=== PATIENT | female | born 1955 | race Caucasian/White ===

== ENCOUNTER 2022-05-12 14:18 | Inpatient (IN) | payer MEDICARE ==
[~2022-05-12] VITALS: Ht 162.6 cm; Wt 93.1 kg
[2022-05-12] MEDS ORDERED: VITAMIN D325 MCG PO (19:43)
[2022-05-12] MEDS ORDERED: DAILY VITE1 EAC1 PO (19:43)
[2022-05-12] MEDS ORDERED: GLUCOSAMINE CH1 EAC7 PO (19:44)
--- NOTE | 2022-05-12 20:58 | NUR ---
IN TO DO ASSESSMENT. pt FAMILY LEAVING. pt SITTING IN BED EATING SANDWICH. REPORTS 5/10 PAIN. SCHEDULED MEDICATION GIVEN (SEE MAR). LASSITER PATENT, CONCENTRATED YELLOW URINE. ASSESSMENT DONE. LEFT KNEE IN BRACE. PEDAL PULSES FELT BILAT. FEET COOL TO TOUCH BILAT. SOCKS PER pt REQUEST. DENIES NUMBNESS AND TINGLING. CALL LIGHT WITHIN REACH.
--- NOTE | 2022-05-12 21:11 | EKG ---
[facility] [address] [facility] [place] [address] Signed Normal sinus rhythm Nonspecific T wave abnormality Abnormal ECG No previous ECGs available Confirmed by Lesli Steve MD () on 05/12/2022 9:10:55 PM Electronically Signed By: LESLI STEVE MD 05/12/222110 PATIENT NAME: NUSRAT PETERSON Radha Electrocardiogram DATE OF : 51 PHYSICIAN: LESLI STEVE MD REPORT #: [id number] REPORT IS CONFIDENTIAL AND NOT TO BE RELEASED WITHOUT AUTHORIZATION
--- NOTE | 2022-05-12 23:00 | NUR ---
ROUNDED ON pt. RESTING IN BED AWAKE. REPORTED THAT PAIN IS "HOLDING" RATED 8/10. OFFERED PAIN MEDICATION, DECLINED AT THIS TIME. WILL ROUND AGAIN. CALL LIGHT WITHIN REACH.
--- NOTE | 2022-05-12 23:23 | NUR ---
ROUNDED ON pt. REPORTS THAT PAIN IS STARTING TO LET UP. RATED PAIN 6/10. DECLINED MEDICATION AT THIS TIME. CALL LIGHT WITHIN REACH. pt RESTING IN BED.
--- NOTE | 2022-05-13 02:17 | NUR ---
PATIENT IS RESTING IN BED. PATIENT RATES PAIN AT A 6/10 IN HER LEFT LEG. PRN PAIN MEDICATION GIVEN PER ORDER. PATIENTS VITALS TAKEN AND RECORDED. LASSITER EMPTIED. INTAKE AND OUTPUT RECORDED. PATIENT DENIES ANY FURTHER NEEDS CALL LIGHT IN REACH.
--- NOTE | 2022-05-13 04:40 | NUR ---
pt CALLED FOR PAIN MEDICATION. pt REPORTS THAT HER BLADDER IS "FULL" FEELING. ATTEMPTED TO CLEAR LASSITER. VERY LITTLE URINE RETURNED UNABLE TO FLUSH OR EVACUATE URINE. PULLED LASSITER PER PROTOCOL. pt ATTEMPTED TO VOID, UNABLE TO. NEW LASSITER PLACED PER PROTOCOL. IMMEDIATE URINE RETURNED, YELLOW WITH SEDIMENT. pt REPOSITIONED WITH EXTREME CARE TO STABLIZE LEG WITH 3 STAFF. pt REPORTS THAT BLADDER FEELS BETTER. LEG PAIN WITH REPOSITIONING. pt REQUESTED TO WAIT A "BIT" FOR PAIN MEDICATION. NO CHANGES IN ASSESSMENT. CALL LIGHT WITHIN REACH.
--- NOTE | 2022-05-13 05:01 | NUR ---
ROUNDED ON pt. RESTING IN BED WITH EYES CLOSED, RESPIRATIONS REGULAR AND UNLABORED, RATE 16. CALL LIGHT WITHIN REACH.
--- NOTE | 2022-05-13 07:11 | NUR ---
PRN PAIN MEDICATION GIVEN (SEE MAR). pt REPORTS PAIN RELIEF QUICKLY FROM 10/10 TO TOLERABLE. DAUGHTER AT BEDSIDE.
--- NOTE | 2022-05-13 07:38 | NUR ---
Report from SHARA Maldonado. Patient alert and oriented in bed. Daughter at bedside. Aguilar patent at this time. Patient states nausea improved with crackers. Denies other needs at this time. Call light in reach, bed rails up X2.
--- NOTE | 2022-05-13 08:16 | NUR ---
SPOKE WITH DR. STEVE REGARDING PATIENT NAUSEA. VORB DR. STEVE/Janelle GRIER, RN, FOR ZOFRAN IV 4-8MG Q 6 HOUR PRN FOR NAUSEA AND VOMITING, ZOFRAN ODT 4 MG Q 6 HOURS FOR NAUSEA AND VOMITING WHEN IV NOT GIVEN. PATIENT EDUCATED ON MEDICATION, MEDICATION ADMINISTERED. DAUGHTER AT BEDSIDE. ASSESSMENT COMPLETED. DENIES OTHER NEEDS AT THIS TIME. CALL LIGHT IN REACH. BED RAILS UP X2.
--- NOTE | 2022-05-13 08:29 | NUR ---
PATIENT IN BED, DAUGHTER IN ROOM. AM CARE COMPLETED. CALL LIGHT WITHIN REACH.
--- NOTE | 2022-05-13 11:12 | NUR ---
Dr. Solitario notified of UO of 50 mL in 4 hours. Bladder scan negative for any urine. No new verbal orders at this time.
[2022-05-13] MEDS ORDERED: ASPIRIN325 MG PO (11:25)
--- NOTE | 2022-05-13 11:26 | NUR ---
MED REC COMPLETE
--- NOTE | 2022-05-13 13:43 | NUR ---
PATIENT IN BED AFTER MEAL. FAMILY IN ROOM VISITING, VITALS AND I/O'S COMPLETED. ICE WATER GIVEN, PT HAS SOME COMPLAINTS OF PAIN. WILL NOTIFY NURSE, CALL LIGHT WITHIN REACH.
--- NOTE | 2022-05-13 13:50 | NUR ---
PATIENT GIVEN 10MG OF PO OXYCODONE FOR 6/10 LEFT LEG PAIN.
--- NOTE | 2022-05-13 14:22 | NUR ---
PATIENT AWAKE, TALKING TO VISITORS. DENIES NEEDS AT THIS TIME. RATES PAIN 3 OR 4/10. STATES PAIN IS CURRENTLY TOLERABLE.
--- NOTE | 2022-05-13 18:05 | NUR ---
NOTIFIED DR. STEVE OF CONTINUED POOR URINE OUTPUT. DR. STVEE STATES HE WILL PUT IN ORDERS FOR IV FLUIDS.
--- NOTE | 2022-05-13 18:37 | NUR ---
Patient remains on bedrest today. PRN oral and IV medications administered for pain. Ice to site intermittently today. Brace to left leg remains in place. NPO at midnight tonight. Urine output inadequate today, IV fluids initiated this evening. Family members remain in room with patient.
--- NOTE | 2022-05-13 19:00 | NUR ---
PATIENT LYING IN BED, VITALS AND I/O'S COMPLETED. LASSITER DRAINED AND DOCUMENTED. ICE WATER GIVEN. PT HAS NO OTHER NEEDS AT THIS TIME. CALL LIGHT WITHIN REACH.
--- NOTE | 2022-05-13 19:34 | NUR ---
REPORT RECEIVED FROM DAY SHIFT RN. PT LYING IN BED WITH EYES CLOSED. RESPIRATIONS EVEN. BED ALARM FOR SAFETY. CALL LIGHT IN REACH.
--- NOTE | 2022-05-13 22:15 | NUR ---
EVENING ASSESSMENT COMPLETE. SCHEDULED MEDS ADMIN PER EMAR. PT REPORTS LEFT LEG PAIN TOLERABLE AT THIS TIME. DENIES PRN FOR PAIN WHEN OFFERED. VS AND I&O COMPLETE. TEMP ELEVATED. IS PROVIDED, PT DEMONSTRATED PROPER USE. EXTRA BLANKETS REMOVED. 3L/NC PLACED SpO2 DOWN TO MID 80'S WHEN PT WOULD DOZE OFF. CPOX PLACED. LEFT LEG IN BRACE. CMS INTACT. 2PA TO REPOSITION IN BED. IVF INFUSING WNL. LASSITER PATENT WITH CONCENTRATED URINE. LOW URINE OUTPUT NOTED. ENCOURAGED PO INTAKE. FAMILY AT BEDSIDE. PT DENIES QUESTIONS OR CONCERNS. CALL LIGHT IN REACH.
--- NOTE | 2022-05-14 00:20 | NUR ---
PT REPORTS LEFT LEG PAIN 5/10. PRN FOR PAIN ADMIN PER EMAR WITH BITES OF PUDDING. PT NPO AT THIS TIME. IVF INFUSING WNL. NO FURTHER NEEDS.
--- NOTE | 2022-05-14 03:02 | NUR ---
IV PUMP ALARMING, NEW BAG OF IV FLUIDS PROVIDED. NO OTHER NEEDS. CALL LIGHTIN REACH.
--- NOTE | 2022-05-14 04:11 | NUR ---
PT RESTING IN BED WITH EYES CLOSED. RESPIRATIONS EVEN. SpO2 95% PM 3L/NC. HR 90'S. DAUGHTER AT BEDSIDE RESTING IN RECLINER. CALL LIGHT IN REACH.
--- NOTE | 2022-05-14 06:51 | NUR ---
DR. PETERSON CALLED AND PROVIDED UPDATES. NEW TELEPHONE ORDERS RECEIVED VERIFIED WITH READBACK METHOD. PT REPORTS PAIN IS TOLERABLE AT THIS TIME. CMS INTACT. LEFT LEG IN BRACE. ICE PACK PROVIDED TO KNEE. PT NPO. IVF INFUSING WNL. URINE OUTPUT IMPROVED. DAUGHTER AT BEDSIDE. QUESTIONS ANSWERED. NO FURTHER NEEDS. CALL LIGHT IN REACH.
--- NOTE | 2022-05-14 07:30 | NUR ---
REPORT FROM SHARA KELLY. PATIENT LYING IN BED. STATES PAIN 6 OR 7/10 THIS AM AFTER BEING MOVED FOR XRAY. SEE EMAR. DAUGHTER IN ROOM, AT BEDSIDE. ASSESSMENT COMPLETED. DENIES OTHER NEEDS AT THIS TIME. CALL LIGHT IN REACH, BED RAILS UP X2.
--- NOTE | 2022-05-14 09:01 | NUR ---
PT LAYING IN BED. DAUGHTER PRESENT IN ROOM. VITALS AND IS AND OS COMPLETE. NO NEEDS. CALL LIGHT WITHIN REACH.
--- NOTE | 2022-05-14 11:49 | NUR ---
Surgical wipedown completed. New gown on patient. PRN analgesic provided p wipedown due to pain. Informed patient her dentures will need to be removed prior to surgery, cup provided at bedside. No jewelry in place. Denies other needs at this time.
--- NOTE | 2022-05-14 12:36 | NUR ---
SPOKE WITH PATIENT IN ROOM. PATIENT AWAKE, DROWSY FROM PAIN MEDICATIONS. PATIENT IS ORIENTED. DOES DRIFT TO SLEEP FROM TIME TO TIME BUT AWAKENS QUICK TO NAME. PATIENT STATES SHE IS WAITING FOR SURGERY. PATIENT STATES SHE NORMALLY DRIVES, DOES NOT USE DME. THEY LIVE OUT OF TOWN A [place] [facility]. SHE STATES SHE LIVES WITH OCTAVIA, HAS ADULT KIDS IN THE AREA AND HER DAUGHTER IS COMING TO STAY WITH HER WHILE SHE RECOVERS. PATIENT STATES THERE ARE TWO STEPS INTO HOME, ONE LEVEL INSIDE. SHE STATES SHE HAS SOME CRUTCHES AND SHE IS BORROWING A WALKER. SHE STATES HER FAMILY IS WORKING ON THAT. SHE STATES SHE HAS A TUB/SHOWER COMBO BUT NO SHOWER CHAIR. PATIENT STATES SHE CAN GO TO [place] FOR THERAPY IF NEEDED. SHE STATES SHE USES [facility] AND HAS PCP IN [place]. PATIENT FEELS SAFE TO GO HOME WITH HER FAMILY. I LEFT THE ROOM, PATIENTS OCTAVIA AND DAUGHTER HARESH PABLO WERE COMING IN. WE VISITED IN [place]. THEY PLAN ON HER DISCHARGING TO HOME. THEY STATED HARESH IS GOING TO STAY WITH THEM, SHE IS AN RESPIRATORY SUPPORT TECHNICIAN. SHE WILL TAKE FMLA. THEY HAVE ALREADY GOT A RAMP INSTALLED, BORROWED A FWW AND WHEELCHAIR. [facility] ABOUT [facility]OWER BENCH. THE TUB IS A GARDEN TUB WITH A STEP UP AND HAS A SHOWER. THEY ALSO HAVE A TOILET RISER SECURED AND ARE INSTALLING GRAB BARS IN BATHROOM. THEY WILL BE PROVIDING TRANSPORTATION TO ALL APPOINTMENTS AND HOME. THEY ARE EAGER TO WORK WITH DISCHARGE FOR ANYTHING WE THINK SHE NEEDS. WE DISCUSSED WE WILL KNOW MORE AFTER SURGERY AND THERAPIES HAVE WORKED WITH HER. CM WILL CONTINUE TO FOLLOW.
--- NOTE | 2022-05-14 13:06 | NUR ---
PT was in bed. Appeared to be in good spirits, but did fall asleep during conversation. Woke a short time later, and appeared to be unaware she had dozed off. Prayed for comfort and healing.
--- NOTE | 2022-05-14 13:22 | NUR ---
PATIENT IS ON STRAIGHT SURGERY TUBING AND FLUIDS, COMPRESSOR OPERATOR TO OR ANCEF AND TRANEXAMIC ACID ARE HANGING WITH IVF. LASSITER CATHETER EMPTIED FOR 150CC OF SEDIMENTED YELLOW URINE. FAMILY ARE IN ROOM WITH PATIENT.
--- NOTE | 2022-05-14 13:55 | NUR ---
Patient taken to surgery via bed.
--- NOTE | 2022-05-14 15:58 | NUR ---
Telemetry removed for MRI, taken to MRI with radiology staff in wheelchair. Heavy 2 person assist to wheelchair, pivot transfer.
--- NOTE | 2022-05-14 17:56 | NUR ---
05/14/22 1756 Jenise Pryor 1738- PT ARRIVES TO PACU REACTIVE TO VOICE. PT REPORTS NO PAIN OR NAUSEA. RESP EVEN AND UNLABORED. OXYGEN SAT HIGH 90'S TO 100% ON 6L VIA MASK. CRYOCUFF PLACED TO PT'S LEFT KNEE WITH DRESSING IN BETWEEN SKIN AND CRYOCUFF. 1742- OXYGEN TITRATED OFF.
--- NOTE | 2022-05-14 18:55 | NUR ---
PATIENT ARRIVES FROM PACU IN BED. ON 2L/MIN PER NC OXYGEN. DRESSING TO LEFT LEG IS C/D/I AND CRYOCUFF IN PLACE. ELEVATED TEMP NOTED. IS DONE 6 TIMES UP TO 1250. FAMILY REMAINS IN ROOM AT THIS TIME. PAIN 4/10 AT THIS TIME. GOOD PULSES, BRISK CAP REFILL. ROM INTACT.
--- NOTE | 2022-05-14 19:29 | NUR ---
REPORT RECEIVED FROM DAY SHIFT RN. PT LYING IN BED ALERT AND ORIENTED. REPORTS PAIN IS TOLERABLE AT THIS TIME. SCD'S/TEDS/HP/CRYO IN PLACE. BRACE TO LEFT LEG IN PLACE. SpO2 MID 90'S. 2L/NC IN PLACE. CLEAR LIQUIDS PROVIDED PER REQUEST. PT DENIES NAUSEA. NO FURTHER NEEDS AT THIS TIME. FAMILY AT BEDSIDE. CALL LIGHT IN REACH.
--- NOTE | 2022-05-14 20:06 | NUR ---
POST OP VS COMPLETE. SCHEDULED MEDS ADMIN. PRN FOR 6/10 LEFT LEG PAIN ADMIN PER EMAR. PT DOZING ON AND OFF. FAMILY OUT OF ROOM FOR DINNER. BED ALARM FOR SAFETY.
--- NOTE | 2022-05-14 21:14 | NUR ---
PT RESTING WITH EYES CLOSED. AWAKENS EASILY. POST OP DONE. PUDDING AND KALYAN CRACKERS PROVIDED. PT REPORTS PAIN IS TOLERABLE AT THIS TIME. FAMILY BACK IN ROOM. NO FURTHER NEEDS.
--- NOTE | 2022-05-14 22:00 | NUR ---
POST OP VS COMPLETE. PT REPORTS PAIN IN LEFT LEG TOLERABLE. SCHEDULED MEDS ADMIN PER EMAR. 2PA TO REPOSITION IN BED. LEFT LEG IN BRACE WITH TOWEL UNDER ACHILLES. SCD'S/TEDS/HP IN PLACE. HP ON RIGHT FOOT. FRESH ICE TO CRYO. SANDWICH BOX PROVIDED. PT VIOLETA REG DIET WELL. FAMILY AT BEDSIDE. NO FURTHER NEEDS.
--- NOTE | 2022-05-15 00:10 | NUR ---
PT RESTING IN BED WITH EYES CLOSED. RESPIRATIONS EVEN. CALL LIGHT IN REACH.
--- NOTE | 2022-05-15 02:16 | NUR ---
PT RESTING WITH EYES CLOSED. AWAKENS EASILY. VS AND I&O COMPLETE. SpO2 96% ON 2L/NC. OXYGEN TITRATED TO 1L/NC. CPOX IN PLACE. PT REPORTS LEFT LEG PAIN TOLERABLE AT 10/12. SCHEDULED PAIN MEDS ADMIN PER ORDER. CMS INTACT BILAT. LEFT LEG IN BRACE. SCD/ABBY/HP IN PLACE. FRESH ICE TO CRYO. DAUGHTER IN ROOM. PT/FAMILY DENIES NEEDS. CALL LIGHT IN REACH.
--- NOTE | 2022-05-15 04:50 | NUR ---
IV PUMP ALARMING. ISSUE RESOLVED. PT REPORTS SHE IS RESTING COMFORTABLY. DENIES NEEDS. SpO2 95% ON 1L/NC.
--- NOTE | 2022-05-15 06:27 | NUR ---
PT AWAKE IN BED. VS AND I&O COMPLETE. REPORTS LEFT LEG PAIN TOLERABLE AT THIS TIME. SCHEDULED MEDS ADMIN. IVF INFUSING WNL. 2PA TO REPOSITION PT IN BED. SCD/TEDS/HP IN PLACE. FRESH ICE TO CRYO. DRESSING TO LEFT LEG CDI. BRACE IN PLACE. CMS INTACT. PT DENIES FURTHER NEEDS. CALL LIGHT IN REACH.
--- NOTE | 2022-05-15 07:15 | NUR ---
REPORT RECEIVED FROM SHARA KELLY. PT LAYING IN BED WITH EYES OPEN. PT RESPONDS WHEN ADDRESSED. RR EVEN AND UNLABORED. PT REPORTING NO NEEDS AT THIS TIME. DAUGHTER AT BEDSIDE. CALL LIGHT IN REACH.
--- NOTE | 2022-05-15 08:54 | NUR ---
IN TO ADMINISTER MEDICATIONS. PT SITTING UP IN BED WIH DAUGHTER AT BEDSIDE. PT TAKES PO MEDICATIONS WITH NO ISSUES. ASSESSMENT COMPLETE. BRUISING NOTED TO RIGHT LATERAL THIGH. PT REPORTING NO PAIN THIS MORNING. BRACE ON LEFT LEG WITH ICE MACHINE. NO OTHER NEEDS OR QUESTIONS AT THIS TIME. CALL LIGHT IN REACH. PT SITTING UP IN BED.
--- NOTE | 2022-05-15 10:18 | NUR ---
IN TO ADMINISTER MEDICATION. PT SITTING UP IN BED WITH FAMILY AT BEDSIDE. PT TAKES PO MEDICATION WITH NO ISSUES. PT REPORTING PAIN 2/10, SCHEDULED TRAMADOL GIVEM. NO OTHER NEEDS OR QUESTIONS AT THIS TIME. CALL LIGHT IN REACH.
--- NOTE | 2022-05-15 13:12 | NUR ---
IN TO REASSESS PAIN. PT STATES PAIN IS A 4/10. PT REQUESTING MORE WATER, WATER PROVIDED. MEAL TRAY REMOVED. NO OTHER NEEDS AT THIS TIME. CALL LIGHT IN REACH. FAMILY IN THE ROOM.
--- NOTE | 2022-05-15 15:40 | NUR ---
Spoke with pt, spouse and two daughters, whom I have known for many years. Pt plans on dc to home with family. They live 130 miles away. Daughter would like pt to have HH. Pt was planning on borrowing a walker, but daughter and pt now stating they would like a walker. I spoke with Dr. Busby and she will order a walker and HH. I will call [facility] and check if they cover the [place] area. Daughter is a nurse there, but is unsure if they cont. to service this area since covandrzej.
--- NOTE | 2022-05-15 16:10 | NUR ---
Faxed [facility] chart and called. They will deliver a walker tomorrow. Attempted to call [facility] , they are closed. Left a message asking if they service the [place] area.
--- NOTE | 2022-05-15 16:47 | NUR ---
IN ROOM TO REASSESS PAIN. PT STATES PAIN IS AT A 6/10 AND REQUESTING PAIN MEDICATION. PRN MEDICATION ADMINISTERED, SEE MAR. NO OTHER NEEDS AT THIS TIME. CALL LIGHT IN REACH.
--- NOTE | 2022-05-15 17:11 | NUR ---
Pt [facility] as their nearest pharmacy is 80 miles away.
--- NOTE | 2022-05-15 18:42 | NUR ---
IN TO ADMINISTER MEDICATION, SEE MAR. PT SITTING UP IN BED REPORTING PAIN 01/12. LASSITER REMOVED. PT REQUESTING TO USE COMMODE. CHING RN IN ROOM TO ASSIST WITH TRANSFER FROM BED TO COMMODE. 2 PA WITH FWW TO COMMODE. SKIP ROCHA IN ROOM TO ASSIST WITH TRANSFER FROM COMMODE BACK TO BED WITH FWW. CRYO FILLED WITH ICE. EDUCATION BIOPROCESS ENGINEER LIGHT AND TO USE CALL LIGHT WHEN NEEDING TO GET UP. PT VERBALIZED UNDERSTANDING. CALL LIGHT IN REACH. NO OTHER NEEDS FROM THIS RN. SKIP ROCHA STILL IN ROOM. FAMILY IN ROOM.
--- NOTE | 2022-05-15 19:34 | NUR ---
REPORT RECEIVED FROM DAY SHIFT RN. PT LYING IN BED ALERT AND ORIENTED. DENIES NEEDS AT THIS TIME. WHITE BOARD UPDATED. CALL LIGHT IN REACH. BED ALARM FOR SAFETY.
--- NOTE | 2022-05-15 22:17 | NUR ---
EVENING ASSESSMENT COMPLETE. SCHEDULED MEDS ADMIN PER EMAR. PT REPORTS PAIN IN LEFT LEG TOLERABLE. DENIES NAUSEA. DRESSING ON LEFT LEG CDI WITH BRACE IN PLACE. FRESH ICE TO CRYO. SCD/TEDS/HP IN PLACE. CMS INTACT. 2PA TO REPOSITION IN BED. PT DENIES QUESTIONS OR CONCERNS. CALL LIGHT IN REACH. DAUGHTER TO SPEND THE NIGHT.
--- NOTE | 2022-05-16 00:06 | NUR ---
PT DUE TO VOID. UP TO BSC WITH FWW AND 2PA. TTWB LEFT FOOT. BACK WASHED AND LOTION APPLIED. LINENS CHANGED. PT UNABLE TO VOID AFTER SITTING FOR APPROX 15 MIN. BACK TO BED, VIOLETA WELL. ASSISTED PT TO LIFT LEG INTO BED. PT REPORTS PAIN TOLERABLE WITH ACTIVITY. BLADDER SCANNED FOR 27 ML. PO INTAKE ENCOURAGED. FRESH WATER PROVIDED.
--- NOTE | 2022-05-16 02:33 | NUR ---
SCHEDULED MEDS ADMIN PER EMAR. PT REPORTS PAIN WELL CONTROLLED. DENIES THE NEED TO VOID AT THIS TIME. ENCOURAGED PO INTAKE. NO NEEDS AT THIS TIME. CALL LIGHT IN REACH.
--- NOTE | 2022-05-16 05:05 | NUR ---
PT RESTING IN BED WITH EYES CLOSED. AWAKENS EASILY. 1PA TO BSC WITH FWW TTWB LEFT LEG. PT ABLE TO VOID APPROX 20 ML. STAFF ASSIST WITH TATIANA CARE. BACK TO BED, VIOLETA WELL. BLADDER SCANNED FOR 250 ML. LEMONADE AND ICE WATER PROVIDED. SCD/TEDS/HP IN PLACE. FRESH ICE TO CRYO. BRACE IN PLACE. CMS INTACT. DRESSING TO LEFT KNEE CDI. PT REPORTS PAIN IS TOLERABLE. NO FURTHER NEEDS AT THIS TIME. CALL LIGHT IN REACH.
--- NOTE | 2022-05-16 06:24 | NUR ---
SCHEDULED MEDS ADMIN PER EMAR. PT REPORTS PAIN WELL CONTROLLED. UP TO BSC WITH 1PA AND FWW TO VOID APPROX 50 ML. STAFF ASSIST WITH TATIANA CARE. BACK TO BED, VIOLETA WELL. SCD/TEDS/HP/CRYO IN PLACE. INGRID ISRAEL NOTIFIED OF LOW URINE OUTPUT. NEW TELEPHONE ORDERS RECEIVED VERIFIED WITH READBACK METHOD.
--- NOTE | 2022-05-16 07:10 | NUR ---
REPORT RECEIVED FROM SHARA KELLY. PT LAYING IN BED WITH EYES CLOSED. RR EVEN AND UNLABORED. NO NEEDS IDENTIFIED AT THIS TIME.
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
--- NOTE | 2022-05-16 08:45 | NUR ---
IN ROOM TO ADMINISTER MEDICATION. PT SITTING UP IN BED WITH MEAL TRAY. PT TAKES PO MEDICATION WITH NO ISSUES. SALINE BOLUS STARTED, SEE MAR. ASSESSMENT COMPLETE. MEAL TRAY REMOVED. PT REQUESTING TO HAVE HOB DOWN TO TRY AND SLEEP. HOB PUT DOWN. NO OTHER NEEDS AT THIS TIME. CALL LIGHT IN REACH.
--- NOTE | 2022-05-16 10:00 | NUR ---
Spoke with pt and she states she had a difficult night. Daughter and spouse in room. Awaiting Dr. Mendoza to see if pt will dc today.
--- NOTE | 2022-05-16 10:19 | NUR ---
IN ROOM TO REASSESS PAIN. PT LAYING IN BED WITH PHYSICAL THERAPY AND FAMILY IN THE ROOM. PT STATES PAIN IS A 2/10, MEDICATION GIVEN, SEE MAR. PT TAKES PO MEIDCATION WITH NO ISSUES. PT REQUESTING MORE WATER, WATER PROVIDED. NO OTHER NEEDS AT THIS TIME. CALL LIGHT IN REACH.
--- NOTE | 2022-05-16 11:25 | NUR ---
IN TO ANSWER CALL LIGHT. PT REQUESTING TOILETING. SKIP MORRISON IN ROOM TO ASSIST WITH TOILETING. PT ABLE TO STAND AND PIVOT FROM BED TO COMMODE WITH 2 PA AND FWW. PT REQUESTING SOME TIME ALONE. CALL LIGHT IN REACH. PT VERBALIZE UNDERSTANDING TO USE CALL LIGHT WHEN READY TO GET FROM COMMODE BACK TO BED.
--- NOTE | 2022-05-16 11:30 | NUR ---
IN ROOM TO ANSWER CALL LIGHT. PT FINISHED WITH TOILETING AND REQUESTING TO GET BACK TO BED. SKIP MORRISON IN ROOM TO ASSIST WITH TRANSFER FROM COMMODE TO BED. PT ABLE TO STAND AND PIVOT WITH 2 PA AND FWW FROM COMMODE TO BED. PT LAYING IN BED. NO OTHER NEEDS AT THIS TIME. CALL LIGHT IN REACH.
--- NOTE | 2022-05-16 12:41 | NUR ---
IN ROOM TO REASSESS PAIN. PT LAYING IN BED WITH FAMILY IN THE ROOM. PT REPORTING PAIN 11/12. PT DENIES WANTING ANYTHING FOR PAIN AT THIS TIME. CALL LIGHT IN REACH. NO OTHER NEEDS AT THIS TIME.
--- NOTE | 2022-05-16 13:00 | NUR ---
Attempted to see pt, she and person in the room are sleeping and do not awaken. Will see tomrrow.
--- NOTE | 2022-05-16 14:32 | NUR ---
Spoke with Dr. Mendoza and pt will dc to home tomorrow.
--- NOTE | 2022-05-16 14:46 | NUR ---
IN ROOM TO ADMINISTER MEDICATION. PT LAYING IN BED WITH FAMILY IN ROOM. PT TAKES PO MEDICATION WITH NO ISSUES. ASSESSMENT COMPLETE. RLL AND LLL LUNG SOUNDS HAVE SOME CRACKLES. O2 SATURATION 93% PT DENIES FEELING SOB, STATES "JUST FEEL SLEEPY." NO OTHER CHANGES FROM PREVIOUS ASSESSMENT. PT REQUESTING TO USE COMMODE. SHARA FLOWER IN ROOM TO ASSIST WITH TOILETING. PT ABLE TO STAND AND PIVOT WITH LITTLE ASSISTANCE TO COMMODE FROM BED. SKIP MORRISON IN ROOM TO ASSIST WITH TOILETING TO GET PT FROM COMMODE BACK TO BED. NO OTHER NEEDS AT THIS TIME. CALL LIGHT IN REACH.
--- NOTE | 2022-05-16 15:33 | NUR ---
IN ROOM TO REASSESS PAIN. PT REPORTS PAIN 4/10 "IT IS DOING OKAY." PT DENIES WANTING ANYTHING FOR PAIN AT THIS TIME. NO OTHER NEEDS AT THIS TIME. CALL LIGHT IN REACH. PT LAYING IN BED WITH FAMILY IN THE ROOM.
--- NOTE | 2022-05-16 16:30 | NUR ---
IN ROOM TO REASSESS PAIN. PT REPORTING PAIN /10 "IT IS OKAY." PT DENIES ANY NEEDS AT THIS TIME. CALL LIGHT IN REACH. FAMILY IN THE ROOM.
--- NOTE | 2022-05-16 17:23 | NUR ---
THIS RN AND SKIP MORRISON IN ROOM TO ANSWER CALL LIGHT. PT REQUESTING TO BE BOOSTED UP IN BED. PT REPORTING PAIN 2/. PT DENIES ANY NEEDS AT THIS TIME. CALL LIGHT IN REACH.
--- NOTE | 2022-05-16 18:05 | NUR ---
IN ROOM TO ADMINISTER MEDICATION. PT TAKES PO MEDICATION WITH NO ISSUES. PT REQUESTING TO USE COMMODE. SKIP GOODE IN ROOM TO ASSIST WITH TOILETING. PT ABLE TO STAND AND PIVOT WITH FWW AND STANDBY ASSIST FROM BED TO COMMODE AND BACK TO BED. SCD ON RIGHT LEG PLACED ALONG WITH HEEL PROTECTOR. CRYO ON LEFT LEG AND ROLLED TOWEL UNDER HEEL. WATER CUP FILLED. NO OTHER NEEDS AT THIS TIME. CALL LIGHT IN REACH. PT LAYING IN BED WITH TELEVISION ON.
--- NOTE | 2022-05-16 18:47 | NUR ---
PT WORKED WITH PHYSICAL THERAPY. 1-2 PERSON ASSIST WITH FWW. PAIN WELL CONTROLLED THIS SHIFT. PT A+O, ON RA, IV SL, VSS. PT TOLERATING REGULAR DIET. VOIDED QS THIS SHIFT.
--- NOTE | 2022-05-16 19:31 | NUR ---
REPORT RECEIVED FROM DAY SHIFT RN. PT LYING IN BED RESTING WITH EYES CLOSED. RESPIRATIONS EVEN. CALL LIGHT IN REACH.
--- NOTE | 2022-05-16 19:50 | NUR ---
SCHEDULED MEDS ADMIN. PT REPORTS LLE PAIN TOLERABLE 10/12. SBA WITH FWW TO BSC TO VOID 250 ML CONCENTRATED URINE. TTWB. STAFF ASSIST WITH TATIANA CARE. BACK TO BED, VIOLETA WELL. SCD/TEDS/HP IN PLACE. FRESH ICE IN CRYO. FAMILY IN ROOM. NO FURTHER NEEDS.
--- NOTE | 2022-05-16 22:08 | NUR ---
EVENING ASSESSMENT COMPLETE. SCHEDULED MEDS ADMIN PER EMAR. PT REPORTS PAIN WELL CONTROLLED. SBA WITH FWW TO BR TO VOID. STAFF ASSIST WITH TATIANA CARE. BACK TO BED, VIOLETA WELL. SCD/TEDS/HP/CRYO IN PLACE. BRACE TO LEFT LEG IN PLACE. DRESSING CDI. CMS INTACT. PT DENIES QUESTIONS OR CONCERNS. FAMILY IN ROOM. CALL LIGHT IN REACH.
--- NOTE | 2022-05-16 23:26 | NUR ---
PT RESTING IN BED WITH EYES CLOSED. RESPIRATIONS EVEN. CALL LIGHT IN REACH.
--- NOTE | 2022-05-17 00:35 | NUR ---
THIS RN RECEIVED REPORT FROM SHARA KELLY AND I AM ASSUMING CARE FOR PATIENT AT THIS TIME. PATIENT IS RESTING IN LOW FOWLERS POSITION, EYES CLOSED, RESPIRATIONS ARE REGULAR AND EVEN, CALL LIGHT IN REACH, AND PATIENT'S DAUGHER ASLEEP ON THE SOFA. PATIENT HAS NO CURRENT NEEDS AT THIS TIME.
--- NOTE | 2022-05-17 00:52 | NUR ---
THIS BRAND SALES MANAGER AND PRIMARY RN GUILLAUME HELPED PATIENT GET UP TO BEDSIDE COMMODE AND BACK TO BED. PATIENT TOLERATED WELL PIVOTING WITH WALKER. CRYO REFILLED. WHITE BOARD UPDATED. DAUGHTER IN THE ROOM.
--- NOTE | 2022-05-17 00:52 | NUR ---
PATIENT CALLED TO VOID. THIS RN AND SKIP VILLAGOMEZ 2PA WITH FWW AND TOE TOUCH WITH LEFT LEG IN BRACE TO THE BEDSIDE COMMODE AND BACK TO BED. PATIENT DENIES THE NEED FOR PAIN MEDS AT THIS TIME. CALL LIGHT IN REACH AND SKIP VILLAGOMEZ REFILLED ICE FOR THE CRYO CUFF WHICH IS NOW IN PLACE. PATIENT HAD NO OTHER CARE NEEDS AT THIS TIME.
--- NOTE | 2022-05-17 01:56 | NUR ---
THIS RN IN TO GIVE 0200 SCHEDULED PAIN MEDS. PATIENT AWOKE WHEN I CAME IN THE ROOM AND RATES HER PAIN 4/10 PRIOR TO MEDICATION ADMINISTRATION. MEDS GIVEN AND AM ASSSESSMENT COMPLETE. ICE WATER REFILLED. PATIENT DENIES ANY OTHER CARE NEEDS AT THIS TIME. CALL LIGHT IN REACH.
--- NOTE | 2022-05-17 04:09 | NUR ---
THIS RN DOING ROUNDS. PATIENT RESTING QUIETLY IN LOW FOWLERS POSITION, WITH LEFT LEG BRACE ON AND CRYO CUFF IN PLACE, EYES CLOSED, RESPIRATIONS ARE REGULAR AND EVEN, AND CALL LIGHT IS IN REACH. SERGIO'S DAUGHTER IS ASLEEP ON THE SOFA. PATIENT HAS NO NOTED NURSE CARE NEEDS AT THIS TIME.
--- NOTE | 2022-05-17 05:26 | NUR ---
THIS RN AND SKIP VILLAGOMEZ IN TO ASSIST PATIENT UP TO THE BEDSIDE COMMODE AND BACK TO BED AFTER VOIDING. CRYO ICE REFILLED AND CUFF BACK IN PLACE, SCD ON RIGHT LEG, AND LEFT LEG BRACE REMAINS IN PLACE. PAIN IS AT 3/10 IN THE LEFT LEG AT THIS TIME. AM SCHEDULED PAIN MEDS GIVEN. CALL LIGHT IN REACH AND ICE WATER REFRESHED. PATIENT HAS NO OTHER CARE NEEDS AT THIS TIME.
--- NOTE | 2022-05-17 07:40 | NUR ---
Report received, care resumed. Pt resting in bed, awake.
[2022-05-17] MEDS ORDERED: OXYCODONE HCL5 MG PO (08:09)
[2022-05-17] MEDS ORDERED: SENNA LAX8.6 MG PO (08:09)
[2022-05-17] MEDS ORDERED: TRAMADOL HCL50 MG PO (08:09)
[2022-05-17] MEDS ORDERED: GABAPENTIN300 MG PO (08:09)
[2022-05-17] MEDS ORDERED: XARELTO10 MG PO (08:09)
[2022-05-17] MEDS ORDERED: ONDANSETRON HCL4 MG PO (08:09)
[2022-05-17] MEDS ORDERED: BACTRIM DS TAB1 EACH PO (08:12)
--- NOTE | 2022-05-17 09:50 | NUR ---
ASSESSMENT DONE, MORNING MEDS GIVEN. DISCUSSED PLAN TO GO HOME TODAY, PLAN FOR PAIN MANAGEMENT. PT DAUGHTER AND IN ROOM ASSISSTING WITH CARE. PAIN 3/10 IN LEFT LEG AT THIS TIME, WELL CONTROLLED PER PT. DRESSING ON INCISION ON LEFT THIGH DRY AND INTACT. PT VERBALIZES READINESS TO RETURN HOME, CONCERN FOR ABILITY TO GET INTO CAR. WILL PLAN TO ADMINISTER PRN PAIN MED PRIOR TO LEAVING PT HAS A LONG DRIVE HOME [place] [address], REASSURANCE GIVEN THAT SHE WILL HAVE HELP WHEN LEAVING HOSPITAL. REPS EVEN AND UNLABORED, PT HAS NO FURTHER NEEDS AT THIS TIME.
--- NOTE | 2022-05-17 10:24 | NUR ---
ALL DISCHARGE INSTRUCTIONS REVIEWED AND ALL QUESTIONS ANSWERED. IV REMOVED WITH CATH. INTACT.
--- NOTE | 2022-05-17 10:31 | NUR ---
IN ROOM TO GIVE SCHEDULED PAIN MEDICATION. PT SITTING UP ON BEDSIDE COMMODE GETTIGN DRESSED FOR DISCHARGE. PAIN 5/10 IN LEFT LEG SINCE GETTING UP AND MOVING. DAUGHTER HELPING PT WITH ADL'S. BEDBATH DONE, SHOWER CAP PROVIDED. CARYL LIGHT IN REACH, RESP EVEN AND UNLABORED.
--- NOTE | 2022-05-17 12:15 | NUR ---
PT DISCHARGED TO HOME WITH DAUGHTER AND , ALL PERSONAL BELONGINGS. PRN PAIN MEDICATION GIVEN PRIOR TO DISCHARGE. VITALS STABLE, PAIN UNDER CONTROL.
--- NOTE | 2022-05-17 14:17 | NUR ---
Faxed face sheet, H&P, progress notes, DC summary, PT notes, F2f to [facility] .
== END 2022-05-17 12:15 | disposition home or self-care (01) | DRG 481 ==
LOC: ED 14:18 → MS 18:55
PROVIDERS: ADMIT Specialist; ATTEND Specialist
PROC: 0QSC04Z Reposition Left Lower Femur with Internal Fixation Device, Open Approach (ICD-10-PCS; principal; 2022-05-14 15:00)
DX: S72.422A Displaced fracture of lateral condyle of left femur, initial encounter for closed fracture (principal); N39.0 Urinary tract infection, site not specified; R79.89 Other specified abnormal findings of blood chemistry; E83.42 Hypomagnesemia; Z20.822 Contact with and (suspected) exposure to COVID-19; R73.03 Prediabetes; Z88.0 Allergy status to penicillin; Z91.048 Other nonmedicinal substance allergy status; Z79.899 Other long term (current) drug therapy; W22.8XXA Striking against or struck by other objects, initial encounter
CPT/HCPCS: 36415; 51702; 64445; 64447; 71045; 73560; 73700; 76942; 80048; 80053; 81001; 83036; 83735; 85025; 85610; 87088; 87186; 93005; 93010; 94760; 97110; 97113; 97116; 97161; 99284-25; A9270; C1713; C9803; J0131; J0690; J0696; J1100; J1170; J1885; J2001; J2405; J2704; J2795; J3010; J3475; J7030; J7121; U0003

== ENCOUNTER 2023-08-23 08:49 | Inpatient (IN) | payer MEDICARE ==
[~2023-08-23] VITALS: Ht 162.6 cm; Wt 81.8 kg
[~2023-08-23 08:49] MED LIST: ALENDRONATE SOD70 MG PO; APPLE CIDER VI300 MG PO; ASPIRIN325 MG PO; BACTRIM DS TAB1 EACH PO; CEFPROZIL500 MG PO; CELECOXIB200 MG PO; DAILY VITE1 EAC1 PO; GABAPENTIN300 MG PO; GLUCOSAMINE CH1 EAC7 PO; HYDROMORPHONE HC2 MG PO; ONDANSETRON HCL4 MG PO; OXYBUTYNIN CHLOR5 M1 PO; OXYCODONE HCL5 MG PO; SENNA LAX8.6 MG PO; TRAMADOL HCL50 MG PO; VITAMIN D325 MCG PO; XARELTO10 MG PO; ZESTRIL10 MG PO
[2023-09-16] MEDS ORDERED: OXYBUTYNIN CHLO10 MG PO (15:04)
[2023-09-16] MEDS ORDERED: K-TAB ER20 MEQ PO (15:05)
[2023-09-16] MEDS ORDERED: MAG GLYCINATE100 MG PO (15:05)
[2023-09-16 15:09] VITALS: BP 130/87
[2023-09-25] VITALS (9 sets, daily range): BP systolic 112–148; BP diastolic 50–88
[2023-09-25] MEDS ORDERED: LACTATED RINGER'S 1,000 ML IV SCH ×2 (05:00→10:00)
[2023-09-25] MEDS ORDERED: VITAMIN D310 MC4 PO (06:12)
[2023-09-25] MEDS ORDERED: IBLOOD GLUCOSE TEST STRIP 1 EA TEST VI PRN (07:00)
[2023-09-25] MEDS ORDERED: FAMOTIDINE 20 MG/ 2 ML VIAL IV SCH (07:00)
[2023-09-25] MEDS ORDERED: HEParin SOD (PORCINE) 5,000 UNIT/0.5 ML SYR SUB-Q SCH ×2 (07:00→21:00)
[2023-09-25] MEDS ORDERED: CEFAZOLIN SODIUM 2 GM/20 ML SYR IV SCH (07:00)
[2023-09-25] MEDS ORDERED: LIDOCAINE HCL 1% 5 ML SDV INJ ONE (07:00)
[2023-09-25] MEDS ORDERED: DEXAMETHASONE SOD PHOS 4 MG/ML VIAL ONE (07:02)
[2023-09-25] MEDS ORDERED: BUPIVACAINE 0.75% IN DEXTROSE 2 ML AMP ONE (07:02)
[2023-09-25] MEDS ORDERED: MIDAZOLAM HCL 2 MG/2 ML VIAL ONE (07:02)
[2023-09-25] MEDS ORDERED: propofoL 200 MG/20 ML VIAL ONE ×4 (07:02→09:21)
[2023-09-25] MEDS ORDERED: LIDOCAINE HCL 2% 5 ML SDV ONE (07:02)
[2023-09-25] MEDS ORDERED: ondansetron HCL 4 MG/2 ML VIAL ONE (07:02)
[2023-09-25] MEDS ORDERED: MORPHINE SULFATE 1 MG/ML VIAL ONE (07:02)
[2023-09-25] MEDS ORDERED: ePHEDrine sulfate 50 MG/ML AMP ONE (07:58)
[2023-09-25] MEDS ORDERED: NALOXONE HCL 0.4 MG SYR IV PRN (08:00)
[2023-09-25] MEDS ORDERED: ondansetron HCL 4 MG/2 ML VIAL IV PRN ×2 (08:00→10:00)
[2023-09-25] MEDS ORDERED: PROCHLORPERAZINE EDISYLATE 10 MG/2 ML VIAL IV PRN ×2 (08:00→10:00)
[2023-09-25] MEDS ORDERED: ACETAMINOPHEN 500 MG TAB PO PRN (08:00)
[2023-09-25] MEDS ORDERED: diphenhydrAMINE HCL 50 MG/ML VIAL IV PRN ×2 (08:00→10:00)
[2023-09-25] MEDS ORDERED: fentaNYL citrate 100 MCG/2 ML VIAL IV PRN (08:00)
[2023-09-25] MEDS ORDERED: fentaNYL citrate 100 MCG/2 ML VIAL ONE (08:40)
[2023-09-25] MEDS ORDERED: FLUORESCEIN SODIUM 500 MG/5 ML ML ONE (09:06)
[2023-09-25] MEDS ORDERED: FAMOTIDINE 20 MG TAB PO PRN (10:00)
[2023-09-25] MEDS ORDERED: bisacodyL 10 MG SUPP PR PRN (10:00)
[2023-09-25] MEDS ORDERED: SIMETHICONE 125 MG TABLET CHEWABLE PO PRN (10:00)
[2023-09-25] MEDS ORDERED: LIDOCAINE 2% VISCOUS 6 ML SYR TOP ONE (10:00)
[2023-09-25] MEDS ORDERED: ACETAMINOPHEN 500 MG TAB PO SCH (10:00)
[2023-09-25] MEDS ORDERED: MAGNESIUM HYDROXIDE/AL HYDROX 30 ML CUP PO PRN (10:00)
[2023-09-25] MEDS ORDERED: ondansetron HCL 4 MG TAB PO PRN (10:00)
[2023-09-25] MEDS ORDERED: IBUPROFEN 800 MG TAB PO SCH (14:00)
[2023-09-25] MEDS ORDERED: SENNOSIDES/DOCUSATE 1 EA TAB PO SCH (21:00)
[2023-09-25] MEDS ORDERED: MINERAL OIL/CHONDRUS 30 ML BTL PO SCH (21:00)
[2023-09-26 02:02] VITALS: BP 105/67
[2023-09-26 05:34] LABS: HEMATOCRIT 34.7 % (35.0-50.0); HEMOGLOBIN 11.6 g/dL (12.0-18.0); MCH 30.6 (27-36); MCHC 33.3 g/dl (30-36); MCV 91.8 fl (81-99); RBC 3.78 M/ul (4.3-5.7)
[2023-09-26 05:40] LABS: ANION GAP 11.8 (7-21); BUN/CREATININE RATIO 15.27 (6.0-28.6); CALCIUM 9.1 mg/dL (8.5-10.1); CREATININE, SERUM 0.72 mg/dL (0.55-1.02); POTASSIUM 4.8 mmol/L (3.5-5.1)
[2023-09-26 05:45] VITALS: BP 105/67
[2023-09-26 06:05] VITALS: BP 128/60
--- NOTE | 2023-09-26 08:17 | OR ---
[facility] [address] [place], [place] [address] Signed DATE OF OPERATION: 09/25/2023 SURGEON: Cait Aguayo MD ENVIRONMENTAL ANALYST: DWIGHT Hernandez DO PREOPERATIVE DIAGNOSIS: Vault prolapse. POSTOPERATIVE DIAGNOSIS: Vault prolapse. PROCEDURE: Colpocleisis with cystoscopy. ANESTHESIA: Spinal with IV sedation. ESTIMATED BLOOD LOSS: 75 mL. DRAINS: Aguilar catheter. PACKS: None. INDICATIONS AND FINDINGS: The patient is a 68-year-old female, who reportedly is status post total abdominal hysterectomy many years ago for benign indications. She has been developing worsening prolapse and bulging and was diagnosed with complete vault prolapse. After discussion of her options, she wished to proceed with colpocleisis. At the time of surgery, it was apparent that she had a supracervical hysterectomy with a small cervix seen. This was left in place. DESCRIPTION OF PROCEDURE: The patient was prepped and draped in the dorsal lithotomy position. The complete vault prolapse was noted and Aguilar catheter was placed. A cautery was used to kendell the bladder neck as well as just within the posterior vaginal wall to know where to stop the Electronically Signed By: CAIT AGUAYO MD 09/26/23 0817 PATIENT NAME: NUSRAT PETERSON OPERATIVE REPORT DATE OF : 51 REPORT #: [id number] PHYSICIAN: CAIT AGUAYO MD PCP: KALEIGH RAZO REPORT IS CONFIDENTIAL AND NOT TO BE RELEASED WITHOUT AUTHORIZATION [facility] [address], [place] [address] Signed dissection. Cautery was then used to divide the vaginal mucosa in quarters. The vaginal mucosa was excised over each quarter using a combination of blunt and sharp dissection. A small amount of mucosa was left over the cervix. Bleeding points were controlled as much as possible during the dissection. After all of the vaginal mucosa had been removed, the mucosa over the cervix was closed anteriorly to posteriorly inverting the cervix. The vault prolapse was reduced with a series of pursestring sutures using 2-0 Vicryl. This was done until the vault prolapse was completely reduced. Jaja was used as the vault prolapse reduced to aid in hemostasis. The anterior wall was shorter than the posterior wall and there was some excess tissue on the posterior wall. As perineorrhaphy was also planned, a triangle of tissue was removed from the perineal body and the vaginal mucosa undermined in the midline. The excess vaginal mucosa was then undermined and excised. As perineorrhaphy was also planned, an incision was made on the perineum, removing a triangle of tissue. The incision was made along the fourchette. The vaginal mucosa was from the underlying tissue with a combination of blunt and sharp dissection allowing for removal of more of that posterior vaginal mucosa. Again, bleeding points were controlled with cautery. This area also had a superficial pursestring suture reducing this defect. This was also brought to the anterior vagina. A rectal examination was done assuring no sutures in the rectum. The remaining anterior vaginal mucosa was then sutured to the posterior vaginal mucosa closing the canal completely. Gelfoam was packed in this area to further aid in hemostasis. Cystoscopy was then done to assure there was no injury to the bladder. The Aguilar removed and the bladder inspected. She did receive IV fluorescein. There was no evidence of injury. The ureteral orifices identified and free spill of urine noted bilaterally. The perineorrhaphy was begun with extending the dissection superiorly along the labia. Interrupted sutures of 0 Vicryl were placed, plicating the perineum with interrupted sutures of 0 Vicryl. The vaginal mucosa was closed with a running suture of 2-0 Vicryl. The perineum was closed with subcuticular sutures of 2-0 Vicryl. The vaginal canal was evaluated and there was no evidence of any ongoing bleeding. A rectal exam was repeated and again there was no evidence of rectal sutures or injury. All sponge and needle counts were correct. She tolerated the procedure well and was taken to the recovery room in good condition. Cait Aguayo MD PJW/MODL /[id number] Electronically Signed By: CAIT AGUAYO MD 09/26/23 0817 PATIENT NAME: NUSRAT PETERSON OPERATIVE REPORT DATE OF : 51 REPORT #: [id number] PHYSICIAN: CAIT AGUAYO MD PCP: KALEIGH RAZO REPORT IS CONFIDENTIAL AND NOT TO BE RELEASED WITHOUT AUTHORIZATION [address] [address] Signed Copies: ~ Electronically Signed By: CAIT AGUAYO MD 09/26/23 0817 PATIENT NAME: NUSRAT PETERSON JASS OPERATIVE REPORT DATE OF : 51 REPORT #: [id number] PHYSICIAN: CAIT AGUAYO MD PCP: KALEIGH RAZO REPORT IS CONFIDENTIAL AND NOT TO BE RELEASED WITHOUT AUTHORIZATION
[2023-09-26] MEDS ORDERED: OXYBUTYNIN CHLOR5 M1 PO (08:40)
[2023-09-26 08:41] VITALS: BP 139/65
[2023-09-26] MEDS ORDERED: lisinopriL 10 MG TAB PO SCH (09:00)
[2023-09-26] MEDS ORDERED: IBU800 MG PO (13:26)
[2023-09-26] MEDS ORDERED: MINERAL OIL EX473 ML PO (13:32)
[2023-09-26] MEDS ORDERED: SENOKOT-S TABL1 EACH PO (13:33)
[2023-09-26 13:56] VITALS: BP 140/62
== END 2023-09-26 14:41 | disposition home or self-care (01) | DRG 748 ==
LOC: DSVR 09-25 05:55 → MS 09-25 07:30
PROVIDERS: ADMIT Obstetrics & Gynecology; ATTEND Obstetrics & Gynecology
PROC: 0ULG8ZZ Occlusion of Vagina, Via Natural or Artificial Opening Endoscopic (ICD-10-PCS; principal; 2023-09-25 07:30)
DX: N99.3 Prolapse of vaginal vault after hysterectomy (principal); N39.0 Urinary tract infection, site not specified; M19.90 Unspecified osteoarthritis, unspecified site; I10 Essential (primary) hypertension; M81.0 Age-related osteoporosis without current pathological fracture; Z96.652 Presence of left artificial knee joint; Z87.440 Personal history of urinary (tract) infections; Z90.49 Acquired absence of other specified parts of digestive tract; Z98.890 Other specified postprocedural states; Z90.710 Acquired absence of both cervix and uterus; Z79.899 Other long term (current) drug therapy; Z88.0 Allergy status to penicillin
CPT/HCPCS: 00940; 36415; 80048; 85027; A9270; J0690; J1100; J1644; J2001; J2250; J2274; J2405; J2704; J3010; J7121